=== PATIENT | male | born 1965 | race Caucasian/White ===

== ENCOUNTER 2016-12-24 20:23 | Emergency (ER) | payer BC ==
[~2016-12-24] VITALS: Ht 188 cm; Wt 113.6 kg
[2016-12-24 20:27] VITALS: BP 155/88; TEMP 99.7
[2016-12-24 22:05] LABS: INFLUENZA B NEGATIVE
[2016-12-24] MEDS ORDERED: PHENERGAN W/CO120 M1 PO (22:30)
[2016-12-24] MEDS ORDERED: ZITHROMAX 250M250 MG PO (22:30)
[2016-12-24 22:58] VITALS: PULSE 91
== END 2016-12-24 22:59 | disposition home or self-care (01) ==
LOC: COL.ER 20:23
PROVIDERS: Nurse Practitioner
DX: J20.9 Acute bronchitis, unspecified (principal)